=== PATIENT | female | born 1945 | race Caucasian/White ===

== ENCOUNTER → 2018-11-09 | Outpatient (CLI) | payer MEDICARE ==
[~2018-11-09] MED LIST: ALBU10PO PO; ASPI-555 PO; CETI-101 PO; CHOL100018 PO; FLUT16H NASAL; INUL1TAB4 PO; MONT10TA24 PO
== END | disposition home or self-care (01) ==
LOC: RAH 11:25
PROVIDERS: ATTEND Family Medicine
DX: K44.9 Diaphragmatic hernia without obstruction or gangrene (principal); I70.0 Atherosclerosis of aorta; K22.8 Other specified diseases of esophagus
CPT/HCPCS: 71250

== ENCOUNTER → 2019-03-19 | Outpatient (CLI) | payer MEDICARE | END | disposition home or self-care (01) | LOC: RAH 11:14 | PROVIDERS: ATTEND Family Medicine | DX: I88.9 Nonspecific lymphadenitis, unspecified (principal); D17.79 Benign lipomatous neoplasm of other sites; L03.112 Cellulitis of left axilla | CPT/HCPCS: 76882 ==